=== PATIENT | male | born 1995 | race Caucasian/White ===

== ENCOUNTER 2017-01-14 14:00 | Inpatient (IN) | payer OTHER ==
[~2017-01-14] VITALS: Ht 175.3 cm; Wt 51.7 kg
--- NOTE | ~2017-01-14 | A ---
[facility] Nutrition Therapy DATE: 01/15/17 Patient: INGRIS REYNOLDS Physician: EBER Address: [address] Room/Bed: [address], Zip: [place] [address] Admit Date: 01/14/17 Date of : [birth year] Height: 5 9 Weight: [id number] NUTRITIONAL ASSESSMENT: REASON: LOW BMI (16.8) PATIENT ADMITTED FOR SI AND ETOH ABUSE PMH: NONE Anthropometrics: HT: 69", WT: 114#, BMI: 16.8, %IBW: 71 Labs: NO LABS AVAILABLE Meds: CELEXA, TRAZODONE, VISTARIL Assessment: PATIENT IS A 21 Y/O MALE ADMITTED FOR SI AND ETOH ABUSE. PATIENT IS CURRENTLY EMPLOYED HEALTH CARE COORDINATOR, LIVES WITH HIS PARENTS, SMOKES 1 PPD, HAS DAILY MARIJUANA USE, AND FREQUENT ETOH USE. PER NEEDS ASSESSMENT PATIENT STATED A FAIR APPETITE WITH A 10# WEIGHT GAIN OVER THE LAST SEVERAL MONTHS, AND THAT HE MAY HAVE AN EATING DISORDER. NO FURTHER DETAILS PROVIDED ABOUT PATIENT'S POSSIBLE EATING DISORDER. THERE ARE CURRENTLY NO PO INTAKES AVAILABLE D/T PATIENT RECENTLY ADMITTED. THERE IS ALSO NO WEIGHT HX IN [employer]. WILL CONTINUE TO F/U WITH WEIGHTS AND PO INTAKES. PATIENT DID NOT SCORE ANY NUTRITIONAL RISK POINTS. THERE ARE NO SKIN OR GI ISSUES NOTED ATT. PATIENT HAS BEEN NOTED TO BE EASILY AGGITATED AND HE IS UPSET ABOUT BEING IN THIS FACILITY. PATIENT IS CURRENTLY ON A REGULAR DIET WITH LARGE PORTION ENTREES. Dx: INADEQUATE NUTRIENT INTAKE R/T CURRENT CONDITION AEB LOW BMI, <90% IBW Intervention: REGULAR DIET, LARGE PORTIONS, MEDS PER MD, PSYCH Monitoring, Evaluation and Goals: 1. ADEQUATE PO INTAKES >50-75% OF MEALS 2. PREVENT, CORRECT MICRO/MACRO NUTRIENT DEFICIENCIES 3. WEIGHT; PROMOTE A STEADY WEIGHT GAIN TOWARDS A HEALTHY BMI OF 19-25, PREVENT WEIGHT LOSS MONITOR: WEIGHTS, LABS, PO/FLUID INTAKES Recommendations: 1. CONTINUE REGULAR DIET WITH LARGE PORTION ENTREES. OFFER SNACKS BETWEEN MEALS 2. ENCOURAGE ADEQUATE KCAL AND PROTEIN INTAKES 3. RE-WEIGH PATIENT. CONTINUE TO OBTAIN WEIGHTS ROUTINELY (EVERY 3-4 DAYS) [facility] Nutrition Therapy DATE: 01/15/17 Patient: INGRIS REYNOLDS Physician: EBER Address: [facility] [address] Room/Bed: [address], Zip: [place] [address] Admit Date: 01/14/17 Date of : 95 Height: 5 9 Weight: [phone] 4. IF PO INTAKES ARE BELOW 50-75% OF MEALS PLEASE ORDER ENSURE BID TO PROMOTE ADEQUATE KCAL AND PROTEIN INTAKES RD TO F/U PER PROTOCOL AND PRN R/T PATIENT MILDLY COMPROMISED Respectfully, DEEDEE DODGE RD, LD [employer] [facility] cc: client file
--- NOTE | ~2017-01-14 | PA ---
Unit #: [id number] #: [id number] Patient: INGRIS REYNOLDS [id number] [facility] [address] [place] [address] [id number] MR#: [id number] NAME: INGRIS REYNOLDS ROOM: 12 Age: 21 Sex: M Admission Date: 01/14/2017 : 1995 Date of Assessment: Attending Physician: César Butler M.D. Admitting Physician: César Butler M.D. Primary Care Physician: Primary Care Physician No PSYCHIATRIC ASSESSMENT INFORMANTS The patient reliability, fair informant and chart reliability, good. CHIEF COMPLAINT Suicidal ideation and alcohol abuse. HISTORY OF PRESENT ILLNESS Mr. Reynolds is a 21-year-old male, admitted with the above-mentioned complaint. The patient is a single white male, presented with alcohol abuse and suicidal ideation. The patient making comments "I have decided I don't want to live anymore. I have been going through a lot." The patient reported 3 months ago was drinking 6 to 7 beers daily. The patient stated that "I quit two months ago and had alcohol withdrawals and went through it." The patient reported now "I drink on the weekends." The patient reported last use of alcohol was 2 days ago. The patient reported smoking 1 g of marijuana daily and the last use was on 01/12/2017. The patient believes that he has an eating disorder. The patient expressed suicidal ideation at the time of admission and plan unknown. Needing inpatient admission at this time for psychiatric stabilization. PAST PSYCHIATRIC HISTORY Remarkable for history of outpatient treatment through [facility] at age 17 for drugs and suicidal ideation. FAMILY HISTORY AND SOCIAL HISTORY The patient lives with his father and mother. No known history of any abuse. No legal charges. MEDICAL HISTORY Unremarkable for any chronic medical illness. Musculoskeletal; muscle strength and tone, no atrophy or abnormal movement. Gait normal. MEDICATION HISTORY None. ALLERGIES No known drug allergies. SUBSTANCE ABUSE HISTORY The patient reported tobacco use, age of onset 17; alcohol, age of onset 15; and marijuana, age of onset 16. Longest period of sobriety 1 month. The patient reported last period of sobriety at age 18. History of Unit #: [id number] #: [id number] Patient: INGRIS REYNOLDS blackouts and withdrawal symptoms, but denied any IV drug use or any HIV or hepatitis. The patient at the time of admission had shaking, abdominal cramping, muscle cramping, depressed mood, headache, irritability, nervousness, poor concentration, rhinorrhea, sleep problems, and tremor. REVIEW OF SYSTEMS HEENT: Eyes, clear. Ears, nose, mouth, and throat; clear. CARDIOVASCULAR: Unremarkable. RESPIRATORY: Unremarkable. GI: Unremarkable. : Unremarkable. SKIN: Unremarkable. LYMPH NODE: Unremarkable. NEUROLOGIC: Unremarkable. ENDOCRINE: Unremarkable. HEMATOLOGIC: Unremarkable. ALLERGIC/IMMUNOLOGIC: Unremarkable. MUSCULOSKELETAL: Muscle strength and tone, no atrophy or abnormal movement. Gait normal. MENTAL STATUS EXAMINATION CONSTITUTIONAL: Measurement of vital signs; temperature 98.1, heart rate 64, respiratory rate 16, and blood pressure 109/59. Height 5 feet 9 inches and weight 114 pounds. GENERAL APPEARANCE: The patient dressed casually. The patient did not show any facial deformity. MUSCULOSKELETAL: Please see above. PSYCHIATRIC EXAMINATION Speech, regular rate and normal volume. Description of thought process, goal directed. Description of association, intact. Description of abnormal psychotic thinking; the patient denied any hallucinations or delusions, but depression, suicidal ideation, and substance abuse. Description of the patient's judgment: Concerning everyday activity, poor. Social situation, poor. Concerning psychiatric condition, poor. Complete mental status examination; oriented in time, place, and person. Recent and remote memory, fair. Attention span and concentration, fair. Language, able to name object and repeat phrases. Fund of knowledge, aware of current event and passive vocabulary intact. Mood and affect, sad and dysphoric. Insight and judgment, fair to poor. ASSETS AND LIABILITIES Assets, the patient is articulate and able to take care of his ADL. Liability, history of depression and substance abuse. ADMITTING DIAGNOSES Psychiatric: Major depressive disorder, recurrent, severe, F33.2; cannabis abuse disorder, moderate, F12.20; and alcohol use disorder, moderate, F10.20. Secondary diagnosis: Deferred. Medical diagnosis: None. Stressors: Psychosocial stressors. PSYCHIATRIC PLAN AND TREATMENT GOAL AND DISCHARGE PLAN Unit #: [id number] #: [id number] Patient: INGRIS REYNOLDS 1. Advised to admit the patient on the inpatient unit. Provide safe, supportive, and structured environment. 2. Ordered labs; CBC, CMP, UA, and UDS. 3. Precaution for aggression and self-harm. 4. The patient advised to start Celexa 20 mg daily and attend all the programing on the inpatient unit, group therapy, individual therapy, and chemical dependency group. Treatment goal to attain euthymic mood, gain insight into his problem, and learn coping skills. DISCHARGE PLAN Plan to stabilize the patient and consider followup in outpatient program. ESTIMATED LENGTH OF STAY 3 to 5 days. Dictated by... César Butler M.D. MIR/anum TD: 01/15/2017 16:51 JOB #: [id number] PSYCHIATRIC ASSESSMENT Page 1 of 1 X César Butler MD X PSYCHIATRIC ASSESSMENT
--- NOTE | ~2017-01-14 | DS ---
Unit #: [id number] #: [id number] Patient: INGRIS REYNOLDS [id number] [facility] [address] [place] [address] [id number] I MR#: [id number] NAME: INGRIS REYNOLDS ROOM: 12 Age: 21 Sex: M Admission Date: 01/14/2017 : 1995 Discharge Date: 01/16/2017 Attending Physician: César Bulter M.D. Primary Care Physician: Primary Care Physician No DISCHARGE SUMMARY REASON FOR ADMISSION Depression, suicidal ideation. LABORATORY DATA Unremarkable except alkaline phosphatase 100. HOSPITAL COURSE The patient was admitted to inpatient unit on January 14, 2017 and discharged on 01/16/2017. The patient was treated on the inpatient unit with group therapy, individual therapy, medication management. The patient was responsive to treatment, showed improvement. The patient apologized for his behavior yesterday, seems to have good insight. The patient was subsequently discharged with a plan to followup in outpatient program. Discharge medications are Celexa 20 mg at bedtime for depression. DISCHARGE DIAGNOSES PSYCHIATRIC Depressive disorder recurrent severe F33.2. Alcohol use disorder severe F10.20. SECONDARY DIAGNOSIS Deferred. MEDICAL DIAGNOSIS None. STRESSORS Psychosocial stressor. INSTRUCTION FOR THE PATIENT The patient to followup in outpatient clinic as per social service coordinator. CONDITION ON DISCHARGE The patient pleasant and cooperative, denied any psychotic symptoms or any suicidal ideation. PROGNOSIS Guarded. DIET AND ACTIVITY As tolerated. Unit #: [id number] #: [id number] Patient: INGRIS REYNOLDS Dictated by... Solo Foley/long TD: 01/17/2017 02:38 JOB #: [id number] DISCHARGE SUMMARY Page 1 of 1 X César Butler MD X DISCHARGE SUMMARY
--- NOTE | ~2017-01-14 | HP ---
Unit #: [id number] #: [id number] Patient: JEAN REYNOLDS [id number] [place] [address] [id number] MR#: [id number] NAME: JEAN REYNOLDS ROOM: P112 Age: 21 Sex: M Admission Date: 01/14/2017 : 1995 Attending Physician: César Butler M.D. Admitting Physician: César Butler M.D. Primary Care Physician: Primary Care Physician No HISTORY AND PHYSICAL HISTORY OF PRESENT ILLNESS Jean is a 21-year-old male admitted on 01/14/[address] [place] [address] for suicidal ideation. PAST MEDICAL HISTORY None. PAST SURGICAL HISTORY None. SOCIAL HISTORY Smokes one pack of cigarettes daily, occasional alcohol use and history of occasional marijuana use. He is currently single and living with his parents. FAMILY HISTORY Noncontributory. REVIEW OF SYSTEMS CONSTITUTIONAL: No fever or chills. HEENT: Denies any sore throat, ear pain or runny nose. CARDIOVASCULAR: Denies chest pain, irregular heart rhythm or palpitations. CHEST: Denies shortness of breath or cough. No hemoptysis. GASTROINTESTINAL: Denies nausea, vomiting, diarrhea or chronic constipation. ENDOCRINE: Denies history of increased thirst or urination. No recent significant weight loss or gain. GENITOURINARY: Denies dysuria, frequency, or hematuria. SKIN: Denies any rashes. HEMATOLOGIC: Denies history of increased bleeding or bruising. MUSCULOSKELETAL: Denies any hot, swollen joints. No generalized muscle pain. NEUROLOGIC: Denies problems with vision or speech. No frequent, severe headaches. No numbness, tingling or weakness in any extremities. Denies loss of bladder or bowel control. CURRENT MEDICATIONS None. ALLERGIES None. Unit #: [id number] #: [id number] Patient: JEAN REYNOLDS PHYSICAL EXAMINATION GENERAL: Alert, oriented, in no acute distress. VITAL SIGNS: Blood pressure 109/59, heart rate 64, respirations 16, temperature 98.1. HEIGHT: 5 foot 9 inches. WEIGHT: 115 pounds. SKIN: Warm and dry without rash or lesion. HEENT: Normocephalic. TMs not viewed. Oral and nasal passages clear. Conjunctivae clear. PERRLA. EOMs intact. NECK: Supple without lymphadenopathy or thyromegaly. HEART: Regular rate and rhythm without murmur. LUNGS: Clear. ABDOMEN: Soft, nontender, without masses or hepatosplenomegaly. : Not done. EXTREMITIES: No evidence of cyanosis, clubbing or edema. Moves all without focal deficit. NEUROLOGICAL: Grossly within normal limits. Cranial Nerves: II: Visual saab are intact. III, IV AND : Extraocular movements are intact. Pupils are equal, round and reactive to light. V: Facial sensation is grossly normal. VII: Facial movements and expression are normal. VIII: Auditory acuity grossly intact. IX, X: Uvula is midline. Phonation is normal. XI: Patient shrugs shoulders and turns head normally. XII: Tongue protrudes in the midline. Sensory and Motor Function: Sensory and motor sensation is grossly normal. Motor: moves all extremities well. Coordination: Gait is normal. Deep Tendon Reflexes: Intact. IMPRESSION Psychiatric admission. RECOMMENDATIONS Psychiatric, per psychiatrist. MEDICAL: I see no contraindications to participating in facility's activities. MEDICAL PROGNOSIS Good. MEDICAL CONDITION Stable. Dictated by... Carrie Joiner/long TD: 01/16/2017 00:56 JOB #: [id number] Unit #: [id number] #: [id number] Patient: JEAN REYNOLDS HISTORY AND PHYSICAL Page 1 of 1 X ARCHIE CISNEROS APRN X HISTORY AND PHYSICAL
[2017-01-16 10:04] LABS: BASOPHIL% 0.3 % (0-2.5); EOSINOPHIL# 0.1 X10e3 (0-0.7); EOSINOPHIL% 1.6 % (0.0-7.0); HEMOGLOBIN 16.2 gm/dL (13.0-16.0); LYMPHOCYTE# 2.6 X10e3 (1.0-3.5); LYMPHOCYTE% 39.5 % (17.0-45.0); MEAN CELL VOLUME 91.7 FL (83-96); MEAN CORPUSCULAR HEMOGLOBIN 30.3 PG (28-34); MONOCYTE# 0.6 X10e3 (0-1.0); MONOCYTE% 8.4 % (3.0-12.0); NEUTROPHIL# 3.3 X10e3 (1.5-7.1); NEUTROPHIL% 50.2 % (40-75); PLATELET COUNT 163 X10e3 (140-420); RED BLOOD COUNT 5.34 X10e (3.90-5.60); RED CELL DISTRIBUTION WIDTH 13.5 % (11.0-15.5); WHITE BLOOD COUNT 6.6 X10e3 (4.0-10.5)
[2017-01-16 10:14] LABS: CALCIUM SERUM 9.8 mg/dL (8.4-10.2); CREATININE SERUM 0.7 mg/dL (0.6-1.4); POTASSIUM 4.7 mmol/L (3.5-5.1); PROTEIN TOTAL SERUM 7.8 g/dL (6.0-8.3)
[2017-01-16 12:32] LABS: DIFF IND NO
== END 2017-01-16 11:45 | DRG 885 ==
LOC: P1S 17:42
PROVIDERS: Psychiatry & Neurology Psychiatry
DX: F33.2 Major depressive disorder, recurrent severe without psychotic features (principal); F10.20 Alcohol dependence, uncomplicated; F12.10 Cannabis abuse, uncomplicated
CPT/HCPCS: 80053; 85025